=== PATIENT | female | born 1990 | race Caucasian/White ===

== ENCOUNTER 2019-01-24 10:05 | Emergency (ER) | payer BC ==
[~2019-01-24] VITALS: Ht 162.6 cm; Wt 61.4 kg
[2019-01-24 10:07] VITALS: BP 149/95
[2019-01-24 13:22] VITALS: PULSE 83; TEMP 99.2
[2019-01-24] MEDS ORDERED: NORCO 325 MG-51 TAB PO (15:29)
[2019-01-24] MEDS ORDERED: FLEXERIL 1010 MG/TAB PO (15:29)
== END 2019-01-24 13:22 | disposition home or self-care (01) ==
LOC: COL.ER 10:05
DX: S06.0X1A Concussion with loss of consciousness of 30 minutes or less, initial encounter (principal); S00.03XA Contusion of scalp, initial encounter; W01.198A Fall on same level from slipping, tripping and stumbling with subsequent striking against other object, initial encounter; Y92.009 Unspecified place in unspecified non-institutional (private) residence as the place of occurrence of the external cause